=== PATIENT | male | born 1960 | race Caucasian/White ===

== ENCOUNTER 2021-11-13 13:59 | Observation (INO) ==
[2021-11-13 15:19] LABS: Basophils % 0.5 % (0.0-0.8); Eosinophils # 0.2 10*3/uL (0.0-0.87); Eosinophils % 2.8 % (0.00-10.9); Hematocrit 47.2 VOL% (42.0-52.0); Immature Granulocytes % 0.3 %; Immature Granulocytes Absolute 0.02 #; Lymphocytes # 1.5 10*3/uL (1.4-4.0); Lymphocytes % 22.4 % (21.2-54.2); Mean Corpuscular HGB Conc 33.9 GM/DL (32-36); Mean Corpuscular Volume 87.4 FL (87-102); Mean Platelet Volume 10.4 FL (9.6-12.0); Monocytes # 0.6 10*3/uL (0.11-0.8); Monocytes % 9.1 % (1.7-12.7); Neutrophils % 64.9 % (38.7-73.9); Platelet Count 195 T/CUMM (130-400); Red Cell Distribution Width 12.8 % (9.3-17.3); White Blood Count 6.5 T/CUMM (4-12)
[2021-11-13] MEDS ORDERED: ASPIRIN 325 MG TABLET PO STA (15:21)
[2021-11-13 15:42] LABS: Alanine Aminotransferase 34 U/L (16-61); Albumin 3.8 G/DL (3.4-5.0); Alkaline Phosphatase 124 U/L (45-117); Aspartate Amino Transferase 23 U/L (0-37); Bilirubin,Total < 0.39 MG/DL (0.20-1.00); Blood Urea Nitrogen 13 MG/DL (7-18); Calcium 8.4 MG/DL (8.5-10.1); Carbon Dioxide 28 MMOL/L (21-32); Chloride 107 MMOL/L (98-107); Glucose 89 MG/DL (74-106); Osmolality,Calculated 277.4 MOS/KG (273-304); Sodium 140 MMOL/L (136-145)
[2021-11-13] MEDS ORDERED: KETOROLAC 30 MG/1 ML VIAL IV STA (17:05)
[2021-11-13] MEDS ORDERED: hydrALAZINE 20 MG/1 ML VIAL IV PRN (17:12)
[2021-11-13] MEDS ORDERED: ACETAMINOPHEN 325 MG TABLET PO PRN (17:12)
[2021-11-13] MEDS ORDERED: ALBUTEROL 2.5 MG/3 ML NEB RESP TX PRN (17:12)
[2021-11-13] MEDS ORDERED: ONDANSETRON 4 MG/2 ML VIAL IV PRN (17:12)
[2021-11-13] MEDS ORDERED: GLUCAGON 1 MG VIAL IM PRN (17:12)
[2021-11-13] MEDS ORDERED: DEXTROSE 10% 250 ML BAG IV PRN (17:18)
[2021-11-13] MEDS ORDERED: clonazePAM 0.5 MG TABLET PO PRN (17:19)
[2021-11-13] MEDS ORDERED: ENOXAPARIN 40 MG/0.4 ML SYRINGE SUBCUT SCH (21:00)
[2021-11-14 05:42] LABS: Basophils % 0.6 % (0.0-0.8); Eosinophils # 0.2 10*3/uL (0.0-0.87); Eosinophils % 3.6 % (0.00-10.9); Hematocrit 42.7 VOL% (42.0-52.0); Hemoglobin 14.5 GM/DL (14.0-18.0); Immature Granulocytes % 0.3 %; Immature Granulocytes Absolute 0.02 #; Lymphocytes # 2.4 10*3/uL (1.4-4.0); Lymphocytes % 35.3 % (21.2-54.2); Mean Corpuscular Volume 87.9 FL (87-102); Monocytes # 0.6 10*3/uL (0.11-0.8); Monocytes % 8.9 % (1.7-12.7); Neutrophils % 51.3 % (38.7-73.9); Platelet Count 183 T/CUMM (130-400); Red Blood Count 4.86 MC/CUMM (3.8-5.5); Red Cell Distribution Width 12.9 % (9.3-17.3); White Blood Count 6.8 T/CUMM (4-12)
[2021-11-14 06:04] LABS: Calcium 8.5 MG/DL (8.5-10.1); Osmolality,Calculated 278.5 MOS/KG (273-304); Potassium 3.5 MMOL/L (3.5-5.1); Risk Ratio 4.24; Thyroid Stimulating Hormone 1.73 uIU/ml (0.358-3.74); VLDL Cholesterol 29.4 MG/DL
[2021-11-14] MEDS ORDERED: FLUoxetine 20 MG CAPSULE PO SCH (09:00)
[2021-11-14] MEDS ORDERED: PANTOPRAZOLE 40 MG TABLET PO SCH (09:00)
[2021-11-14] MEDS ORDERED: MULTIVITAMIN (CENTRUM) TABLET PO SCH (09:00)
[2021-11-14] MEDS ORDERED: ASPIRIN 325 MG TABLET PO SCH (09:00)
[2021-11-14 12:55] VITALS: BP 130/59
== END 2021-11-14 12:30 | disposition home or self-care (01) ==
LOC: N.ED 13:59 → N.EDINP 13:59 → SUATTDRO 16:38 → N.TELES 18:02
PROVIDERS: ADMIT Internal Medicine; ATTEND Family Medicine